=== PATIENT | female | born 1945 | race Hispanic/Latino ===

== ENCOUNTER 2018-09-28 10:44 | Day surgery (SDC) | payer MEDICARE ==
[~2018-09-28] VITALS: Ht 147.3 cm; Wt 63.5 kg
[~2018-09-28 10:44] MED LIST: ASPI-555 PO; LOSARTAN PO; METF-444 PO; METO-391 PO; SODIUM CHLORIDE 0.9% 1000ML 1,000 ML IV ONE
[2018-09-28 10:51] VITALS: BP 136/75
[2018-09-28 11:57] VITALS: BP 97/51
[2018-09-28 12:02] VITALS: BP 111/57
[2018-09-28 12:07] VITALS: BP 133/70
[2018-09-28 12:12] VITALS: BP 134/77
== END 2018-09-28 12:35 | disposition home or self-care (01) ==
LOC: ENDO 10:44 → DAH 10:44 → ENDO 12:35
PROVIDERS: ATTEND Internal Medicine
DX: K29.50 Unspecified chronic gastritis without bleeding (principal); K44.9 Diaphragmatic hernia without obstruction or gangrene; I10 Essential (primary) hypertension; E11.9 Type 2 diabetes mellitus without complications; E03.9 Hypothyroidism, unspecified; Z90.710 Acquired absence of both cervix and uterus; Z98.890 Other specified postprocedural states; Z79.899 Other long term (current) drug therapy; K21.0 Gastro-esophageal reflux disease with esophagitis
CPT/HCPCS: 43239; 82948 ×2; 88305; 93005; A4606; J7030; 45380; 45385

== ENCOUNTER → 2019-09-09 | Outpatient (CLI) | payer OTHER ==
[~2019-09-09] MED LIST changes: -SODIUM CHLORIDE 0.9% 1000ML 1,000 ML IV ONE
== END | disposition home or self-care (01) ==
LOC: RAH 13:47
PROVIDERS: ATTEND Internal Medicine Cardiovascular Disease
DX: Z13.6 Encounter for screening for cardiovascular disorders (principal)
CPT/HCPCS: 75571